=== PATIENT | male | born 1975 ===

== ENCOUNTER 2021-11-05 06:07 | Day surgery (SDC) | payer OTHER ==
[~2021-11-05 06:07] MED LIST: LIPITOR20 MG; METFORMIN HCL500 M3; OMEPRAZOLE-BIC1 EAC1; TELMISARTAN-HC1 EAC1
== END 2021-11-05 18:00 | disposition home or self-care (01) ==
LOC: CIR.AMB 06:07
PROVIDERS: ATTEND Colon & Rectal Surgery
DX: K64.8 Other hemorrhoids (principal); I10 Essential (primary) hypertension; Z99.89 Dependence on other enabling machines and devices; G47.33 Obstructive sleep apnea (adult) (pediatric); E11.9 Type 2 diabetes mellitus without complications; Z79.84 Long term (current) use of oral hypoglycemic drugs